=== PATIENT | female | born 1960 | race Caucasian/White ===

== ENCOUNTER → 2020-11-12 | Outpatient (CLI) | payer BC, SELFPAY | END | disposition home or self-care (01) | PROVIDERS: PCP Nurse Practitioner; Visit Provider Nurse Practitioner | DX: L08.9 Local infection of the skin and subcutaneous tissue, unspecified (principal); L72.3 Sebaceous cyst | CPT/HCPCS: 87070; 87075; 87205 ==

== ENCOUNTER → 2023-03-18 | Outpatient (CLI) | payer BC, SELFPAY ==
--- OUTSIDE RECORDS SUMMARY | 2023-03-18 20:50 | XMS RPT_ITS | CCD ---
Author Name Unknown Address [address] [place] [address] [address] [place] [address] Organization [facility] Care Team Providers Care Snow Removing Supervisor Name Role Phone Juanpablo Kohli MD Primary Care Provider Juanpablo Chester Primary Care Unavailable PROVIDER, UNKNOWN Referring Unavailable Beth Grant Attending Unavailable Unavailable Primary Care Provider UnavailJuanpablo Newton MD Primary Care Provider Allergies Allergy Classification Reported Allergen(s) Allergy Type Date of Onset Reaction(s) Facility (5 sources) Acetaminophen / HYDROcodone; Translations: [HYDROCODONE-ACET AMINOPHEN] Drug Allergy 1 Unknown [facility] (4 sources) Codeine Drug Allergy 5 Unknown [facility] (4 sources) Morphine Drug Allergy 5 Unknown [facility] (1 source) Acetaminophen Drug Allergy 8 Unknown [facility] (1 source) HYDROcodone Drug Allergy 8 Unknown [facility] NEGATED: Highlighted row has been ruled out! (2 sources) Other Propensity to adverse reactions 6 Other (See Comments) [facility] Medications Current Medications Medication Drug Class(es) Dates Sig (Normalized) Sig (Original) amoxicillin 875 mg / clavulanate 125 mg oral tablet (2 sources) Penicillin-class Antibacterial Start: 02-08-2022 End: 02-18-2022 take 1 tablet by mouth twice daily amoxicillin-clav ulanic acid (AUGMENTIN) 875-125 mg per tablet Take 1 tablet by mouth twice daily for 10 days. 20 tablet 0 02/08/2022 02/18/2022 Active Completed/Discontinued Medications Medication Drug Class(es) Dates Sig (Normalized) Sig (Original) esomeprazole 40 mg delayed release oral capsule (4 sources) Proton Pump Inhibitor Start: 10-10-2016 take 1 capsule by mouth once daily esomeprazole (NEXIUM) 40 mg capsule Take 1 capsule by mouth once daily. 30 capsule 3 10/10/2016 Active Problems Problem Classification Problem Date Documented Date Episodic/Chronic Diabetes mellitus with complications (4 sources) Type 2 diabetes mellitus; Translations: [Type 2 diabetes mellitus with hyperglycemia] Onset: 11-24-2021 Chronic Diabetes mellitus without complication (3 sources) Diabetes mellitus; Translations: [Type 2 diabetes mellitus without complications] Onset: 01-28-2015 01-28-2015 Chronic Disorders of lipid metabolism (2 sources) Hyperlipidemia; Translations: [Hyperlipidemia, unspecified] Onset: 10-28-2021 10-28-2021 Chronic Esophageal disorders (3 sources) Gastroesophageal reflux disease; Translations: [Gastro-esophageal reflux disease without esophagitis] Onset: 01-28-2015 01-28-2015 Chronic Essential hypertension (3 sources) Hypertensive disorder; Translations: [Essential (primary) hypertension] Onset: 01-28-2015 01-28-2015 Chronic Other aftercare (2 sources) computer terminal operator (current) use of insulin; 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] Onset: 11-24-2021 Episodic Other nutritional; endocrine; and metabolic disorders (2 sources) Body mass index 30+ - obesity; Translations: [Obesity, unspecified] Onset: 10-28-2021 10-28-2021 Chronic Other upper respiratory infections (1 source) Acute pansinusitis; Translations: [Acute pansinusitis, unspecified] Episodic Results Test Name Value Interpretation Reference Range Facil ity Vital Signs Date Time Vital Sign Value Performing Clinician David zafar 02-08-2022 15:43-0500 Body height 157.5 cm Beth Donis PA-C Work Phone: [facility] 02-08-2022 15:43-0500 Body temperature 97.39 [degF] Beth Donis PA-C Work Phone: [facility] 02-08-2022 15:43-0500 Body weight 103.42 kg Beth Donis PA-C Work Phone: [facility] 02-08-2022 15:43-0500 Diastolic blood pressure 102 mm[Hg] Beth Donis PA-C Work Phone: [facility] 02-08-2022 15:43-0500 Heart rate 104 /min Bethjuly Guyy PA-C Work Phone: [facility] 02-08-2022 15:43-0500 Respiratory rate 18 /min Beth Athy PA-C Work Phone: [facility] 02-08-2022 15:43-0500 SaO2% (BldA) [Mass fraction] 97 % Beth Athy PA-C Work Phone: [facility] 02-08-2022 15:43-0500 Systolic blood pressure 162 mm[Hg] Beth Guyy PA-C Work Phone: [facility] Encounters Encounter Date Encounter Type Care Provider Facility Start: 05-19-2022 Refill Beth Macias MD [facility] Phone[facility] Procedures Date Procedure Procedure Detail Performing Clinician Start: 11-24-2021 Urine albumin quantitative Beth Macias MD Work Phone: Start: 11-24-2021 Comprehensive metabo lic panel Beth Macias MD Work Phone: Start: 11-24-2021 Lipid panel Beth Macias MD Work Phone: Start: 11-24-2021 Lipid 1996 panel - S gayle or Plasma Beth Macias MD Work Phone: Start: 05-26-2020 Follow-up visit Start: 10-23-2015 Colonoscopy Beth Macias MD Work Phone: Plan of Treatment Date Care Activity Detail Author Start: 11-24-2026 LIPID SCREEN LIPID SCREEN [facility] Start: 10-22-2025 Screening for malignant neoplasm of colon [facility] Start: 02-03-2023 Diabetic retinal exam Diabetic retinal exam [facility] Start: 11-24-2022 Lipid panel [facility] Start: 11-24-2022 Urine screening for protein [facility] Start: 10-28-2022 Diabetic foot examination Diabetic foot exam [facility] Start: 10-28-2022 Hemoglobin A1c measurement A1C test (Diabetic or Prediabetic) [facility] Start: 10-15-2022 Influenza vaccination Influenza Vaccine (Season Ended) [facility] Start: 03-11-2022 End: 03-11-2022 Patient encounter procedure 03/11/2022 Office Visit Endocrinology Beth Grant MD [address] [facility] [address] [place] [address] Endocrinology [facility] Start: 01-27-2022 Hemoglobin A1c measurement Diabetes: Hemoglobin A1C [facility] Start: 09-14-2021 Influenza vaccination Flu vaccine (#1) [facility] Start: 04-28-2021 Hemoglobin A1c measurement A1C test (Diabetic or Prediabetic) [facility] Work Phone: Start: 03-30-2021 End: 03-30-2021 Patient encounter procedure 03/30/2021 Office Visit Endocrinology Logan Gray DO [address] [place] [address] [phone] Endocrinology Start: 02-14-2021 DEPRESSION ASSESSMENT DEPRESSION ASSESSMENT [facility] Start: 10-15-2020 Influenza vaccination Flu vaccine (#1) [facility] Work Phone: Start: 10-07-2020 Diabetic foot examination Diabetic foot exam [facility] Work Phone: Start: 07-28-2020 COVID-19 Vaccine (3 - Booster for Pfizer series) COVID-19 Vaccine (3 - Booster for Pfizer series) [facility] Start: 04-24-2020 COVID-19 Vaccine (3 - Booster for Pfizer series) COVID-19 Vaccine (3 - Booster for Pfizer series) [facility] Start: 10-08-2018 Creatinine measurement Creatinine monitoring [facility] Work Phone: Start: 10-08-2018 Diabetic microalbuminuria test Diabetic microalbuminuria test [facility] Work Phone: Start: 10-08-2018 Lipid panel Lipid screen [facility] Work Phone: Start: 10-08-2018 Potassium monitoring Potassium monitoring [facility] Work Phone: Start: 07-27-2018 Screening for malignant neoplasm of breast Breast cancer screen [facility] Start: 04-17-2013 DIABETES SCREEN DIABETES SCREEN [facility] Start: 12-04-2009 Shingles Vaccine (1 of 2) Shingles Vaccine (1 of 2) [facility] Start: 12-04-2009 SHINGRIX VACCINE (1 of 2) SHINGRIX VACCINE (1 of 2) [facility] Start: 12-04-2009 Zoster Vaccines (1 of 2) Zoster Vaccines (1 of 2) [facility] Start: 12-04-2004 COLOGUARD (FIT-DNA) COLOGUARD (FIT-DNA) [facility] Start: 12-04-2004 Colonoscopy COLONOSCOPY [facility] Start: 12-04-2004 COLORECTAL CANCER SCREENING COLORECTAL CANCER SCREENING [facility] Start: 12-04-[address] COLONOGRAPHY [facility] Start: 12-04-2004 FECAL OCCULT BLOOD FECAL OCCULT BLOOD [facility] Start: 12-04-2004 Screening for malignant neoplasm of colon [facility] Start: 12-04-2004 SIGMOIDOSCOPY SIGMOIDOSCOPY [facility] Start: 1999 Mammography MAMMOGRAM [facility] Start: 1999 Screening for malignant neoplasm of breast Mammogram [facility] Start: 12-04-1989 HPV TESTING HPV TESTING [facility] Start: 12-04-1989 Screening for malignant neoplasm of cervix [facility] Start: 12-04-1980 PAP TESTING PAP TESTING [facility] Start: 12-04-1980 Screening for malignant neoplasm of cervix Pap smear [facility] Start: 12-04-1978 DTaP/Tdap/Td vaccine (1 - Tdap) DTaP/Tdap/Td vaccine (1 - Tdap) [facility] Start: 12-04-1978 DTaP/Tdap/Td Vaccines (1 - Tdap) DTaP/Tdap/Td Vaccines (1 - Tdap) [facility] Start: 12-04-1978 Urine microalbumin profile DTAP,TDAP,TD (1 - Tdap) [facility] Start: 12-04-1977 Hepatitis C screening [facility] Start: 12-04-1977 HEPATITIS C SCREENING HEPATITIS C SCREENING [facility] Start: 12-04-1977 HIV SCREENING HIV SCREENING [facility] Start: 12-04-1974 HIV screening HIV screen [facility] Start: 1971 Depression Screen Depression Screen [facility] Start: 12-04-1969 Diabetic foot examination Diabetes: Foot Exam [facility] Start: 12-04-1969 Diabetic retinal exam Diabetic retinal exam [facility] Work Phone: Start: 12-04-1969 Glaucoma screening Diabetes: Retinopathy Screening [facility] Start: 12-04-1969 Preventive dental service Diabetes: Dental Exam [facility] Start: 12-04-1965 Pneumococcal 0-64 years Vaccine (1 - PCV) Pneumococcal 0-64 years Vaccine (1 - PCV) [facility] Start: 12-04-1965 Pneumococcal 0-64 years Vaccine (1 of 2 - PPSV23) Pneumococcal 0-64 years Vaccine (1 of 2 - PPSV23) [facility] Work Phone: Start: 12-04-1965 Pneumococcal Vaccine: Pediatrics (0 to 5 Years) and At-Risk Patients (6 to 64 Years) (1 - PCV) Pneumococcal Vaccine: Pediatrics (0 to 5 Years) and At-Risk Patients (6 to 64 Years) (1 - PCV) [facility] Start: 12-04-1960 MMR Vaccines (1 of 1 - Standard series) MMR Vaccines (1 of 1 - Standard series) [facility] Start: 1959 Hepatitis B Vaccines (1 of 3 - 3-dose series) Hepatitis B Vaccines (1 of 3 - 3-dose series) [facility] Start: 1959 Hepatitis C screening Hepatitis C screen [facility] Work Phone: Start: 1959 HIV screening HIV Screening [facility] Start: 1959 Screening for malignant neoplasm of colon [facility] End: 11-25-2020 CT LOWER EXTREMITY LEFT WO CONTRAST CT LOWER EXTREMITY LEFT WO CONTRAST Imaging Routine Once for 1 Occurrences starting 11/25/2020 until 11/25/2020 [facility] Work Phone: Immunizations Immunization Date Immunization Notes Care Provider Fa cility 02-28-2020 Pfizer SARS-CoV-2 Vaccination Beth Macias MD Work Phone: [facility] 02-06-2020 Pfizer SARS-CoV-2 Vaccination Beth Macias MD Work Phone: [facility] 01-13-2016 influenza virus vacc ine, unspecified formulation Sander Sherman MD Work Phone: [facility] Payers Date Payer Category Payer Unknown [id number] 2018 Unknown 1960 Unknown [id number] Social History Date Type Detail Facility Start: 11-17-2020 End: 10-28-2021 Tobacco smoking status INIS Former smoker [facility] Start: 11-17-2020 End: 10-28-2021 Tobacco use and exposure Never used [facility] Start: 11-17-2020 End: 10-28-2021 Alcohol intake Current non-drinker of alcohol (finding) [facility] Work Phone: Start: 11-17-2020 End: 10-28-2021 Alcohol intake [facility] Work Phone: Start: 1960 Sex Assigned At Not on file [email or web address] Work Phone: Start: 10-18-2021 End: 10-28-2021 Exposure to SARS-CoV-2 (event) Not sure [facility] History of tobacco use Current smoker [facility] Work Phone: Tobacco smoking status [facility] Tobacco smoking consumption unknown [facility] Medical Equipment Procedure Code Equipment Code Equipment Origin al Text Equipment Identifier Dates [id number] Start: 08-25-2016 1 each by Does n ot apply route 4 times daily [id number] Start: 11-17-2020 1 Device by Does not apply route 4 times daily [id number] Start: 11-17-2020 1 each by In Vit ro route 4 times daily As directed. [id number] Start: 03-30-2021 1 each by Does n ot apply route 4 times daily [id number] Start: 03-30-2021 1 Device by Does not apply route 4 times daily [id number] Start: 03-30-2021 USE 4 TIMES A DAY [id number] Start: 04-19-2021 1 DEVICE BY DOES NOT APPLY ROUTE 4 TIMES DAILY [id number] Start: 03-30-2021 USE TO CHECK BLO OD SUGAR 4 TIMES DAILY DIRECTED [id number] Start: 01-05-2021 Goals Date Patient Goal Desired Activity /State Telephone encounter Note 05-20-2022 Telephone Encounter - Priscilla Schmitz MA - 05/20/2022 1:15 PM EDT Note Date & Type Note Facility 05-20-2022 Telephone encounter Note Form atting of this note might be different from the original. The patient stated that she had a follow up scheduled but had to cancel due to taking care of her father. She took off a lot of days of work to take care of him and is out of days to take off and she works the same hours that we do. She is intending on making an appt but is not sure yet when she can make an appt, I also let her know that vitrual visits are also an option in case that might help her out. She wanted me to let you know as an fyi and will be getting in touch with us. [facility] Note 05-20-2022 Telephone Encounter - Priscilla Schmitz MA - 05/20/2022 1:15 PM EDTTelephone Encounter - Beth Macias MD - 05/20/2022 7:56 AM EDT Note Date & Type Note Facility 05-20-2022 Miscellaneous Notes Formattin g of this note might be different from the original. The patient stated that she had a follow up scheduled but had to cancel due to taking care of her father. She took off a lot of days of work to take care of him and is out of days to take off and she works the same hours that we do. She is intending on making an appt but is not sure yet when she can make an appt, I also let her know that vitrual visits are also an option in case that might help her out. She wanted me to let you know as an fyi and will be getting in touch with us. Can you please schedule a follow up for this patient for diabetes ? Thanks documented in this encounter [facility] Telephone encounter Note 05-20-2022 Telephone Encounter - Beth Macias MD - 05/20/2022 7:56 AM EDT Note Date & Type Note Facility 05-20-2022 Telephone encount er Note Can you please schedule a follow up for this patient for diabetes ? Thanks [facility] Progress note 02-08-2022 Note Date & Type Note Facility 02-08-2022 Note HNO ID: [id number] Author: Beth Donis PA-C Service: ? Author Type: Physician Official Greeter Type: Progress Notes Filed: 02/08/2022 4:06 PM Note Text: This note was created using [employer]. Subjective María Elena Silva is a 61 year old female. HPI Patient presents with sinus pressure and congestion for 8 days. She had has sinus infections before and feels similar. Last time patient had to take levaquin for symptoms to clear. No fever. No nvd. She thinks it started as allergies. Review of Systems Constitutional: Negative. HENT: Positive for congestion, postnasal drip, sinus pressure, sinus pain and sneezing. Respiratory: Negative. Cardiovascular: Negative. Gastrointestinal: Negative. Genitourinary: Negative. Musculoskeletal: Negative. All other systems reviewed and are negative. No past medical history on file. Current Outpatient Medications Medication Sig Dispense Refill TRULICITY 3 mg/0.5 mL pen injector INJECT 3 MG INTO THE SKIN ONCE A WEEK insulin lispro (HUMALOG) 200 unit/mL (3 mL) injection Inject 15 Units subcutaneously. insulin detemir U-100 (LEVEMIR) 100 unit/mL (3 mL) injection pen Insulin Detemir U-100 Active 10 UNIT SC AT BEDTIME January 19, 2018 1:00am losartan (COZAAR) 25 mg tablet amoxicillin-clavulanic acid (AUGMENTIN) 875-125 mg per tablet Take 1 tablet by mouth twice daily for 10 days. 20 tablet 0 predniSONE (DELTASONE) 20 mg tablet Take 2 tablets by mouth once daily. [address] (PROTONIX) 40 mg tablet Take 1 tablet by mouth once daily. 90 tablet 3 glipiZIDE (GLUCOTROL) 5 mg tablet VICTOZA 3-BRITTNI 0.6 mg/0.1 mL (18 mg/3 mL) pnij NOVOFINE PLUS 32 gauge x 1/6 ndle esomeprazole (NEXIUM) 40 mg capsule Take 1 capsule by mouth once daily. 30 capsule 3 Omeprazole 40 mg capsule Take 1 capsule by mouth once daily. 90 capsule 3 No current facility-administered medications for this visit. No past surgical history on file. No family history on file. Objective BP 162/102 Pulse 104 Temp 36.3 ?C (97.4 ?F) (Tympanic) Resp 18 Ht 157.5 cm (5' 2 ) Wt 103.4 kg (228 lb) SpO2 97% BMI 41.70 kg/m? Physical Exam Vitals reviewed. Constitutional: Appearance: Normal appearance. HENT: Head: Normocephalic and atraumatic. Right Ear: Tympanic membrane, ear canal and external ear normal. Left Ear: Tympanic membrane, ear canal and external ear normal. Nose: Congestion present. Right Sinus: Maxillary sinus tenderness and frontal sinus tenderness present. Left Sinus: Maxillary sinus tenderness and frontal sinus tenderness present. Mouth/Throat: Mouth: Mucous membranes are moist. Pharynx: Oropharynx is clear. Cardiovascular: Rate and Rhythm: Normal rate and regular rhythm. Heart sounds: Normal heart sounds. Pulmonary: Effort: Pulmonary effort is normal. Breath sounds: Normal breath sounds. Musculoskeletal: Cervical back: Neck supple. Lymphadenopathy: Cervical: No cervical adenopathy. Skin: General: Skin is warm and dry. Neurological: Mental Status: She is alert. Assessment and Plan ASSESSMENT/PLAN: 1. Acute non-recurrent pansinusitis - ICD9: 461.8, ICD10: J01.40 - Will begin treatment with Augmentin 875 mg PO BID for 10 days, prednisone for 5. Check BS while on prednisone Discussed side effects of levaquin as patient originally wanted this. She was agreeable with augmentin this time. - Supportive care with plenty of fluids, rest, and analgesia prn. - Follow up in 3-5 days if symptoms persist or worsen. Beth Donis PA-C [facility] History of Present illness Narrative 02-08-2022 Beth Donis PA-C - 02/08/2022 4:03 PM EST Note Date & Type Note Facility 02-08-2022 History of Presen t illness Narrative This note was created using [employer]. Subjective María Elena Silva is a 61 year old female. HPI Patient presents with sinus pressure and congestion for 8 days. She had has sinus infections before and feels similar. Last time patient had to take levaquin for symptoms to clear. No fever. No nvd. She thinks it started as allergies. Review of Systems Constitutional: Negative. HENT: Positive for congestion, postnasal drip, sinus pressure, sinus pain and sneezing. Respiratory: Negative. Cardiovascular: Negative. Gastrointestinal: Negative. Genitourinary: Negative. Musculoskeletal: Negative. All other systems reviewed and are negative. No past medical history on file. Current Outpatient Medications Medication Sig Dispense Refill TRULICITY 3 mg/0.5 mL pen injector INJECT 3 MG INTO THE SKIN ONCE A WEEK insulin lispro (HUMALOG) 200 unit/mL (3 mL) injection Inject 15 Units subcutaneously. insulin detemir U-100 (LEVEMIR) 100 unit/mL (3 mL) injection pen Insulin Detemir U-100 Active 10 UNIT SC AT BEDTIME January 19, 2018 1:00am losartan (COZAAR) 25 mg tablet amoxicillin-clavulanic acid (AUGMENTIN) 875-125 mg per tablet Take 1 tablet by mouth twice daily for 10 days. 20 tablet 0 predniSONE (DELTASONE) 20 mg tablet Take 2 tablets by mouth once daily. [address] (PROTONIX) 40 mg tablet Take 1 tablet by mouth once daily. 90 tablet 3 glipiZIDE (GLUCOTROL) 5 mg tablet VICTOZA 3-BRITTNI 0.6 mg/0.1 mL (18 mg/3 mL) pnij NOVOFINE PLUS 32 gauge x 1/6 ndle esomeprazole (NEXIUM) 40 mg capsule Take 1 capsule by mouth once daily. 30 capsule 3 Omeprazole 40 mg capsule Take 1 capsule by mouth once daily. 90 capsule 3 No current facility-administered medications for this visit. No past surgical history on file. No family history on file. Objective BP 162/102 Pulse 104 Temp 36.3 C (97.4 F) (Tympanic) Resp 18 Ht 157.5 cm (5' 2 ) Wt 103.4 kg (228 lb) SpO2 97% BMI 41.70 kg/m Physical Exam Vitals reviewed. Constitutional: Appearance: Normal appearance. HENT: Head: Normocephalic and atraumatic. Right Ear: Tympanic membrane, ear canal and external ear normal. Left Ear: Tympanic membrane, ear canal and external ear normal. Nose: Congestion present. Right Sinus: Maxillary sinus tenderness and frontal sinus tenderness present. Left Sinus: Maxillary sinus tenderness and frontal sinus tenderness present. Mouth/Throat: Mouth: Mucous membranes are moist. Pharynx: Oropharynx is clear. Cardiovascular: Rate and Rhythm: Normal rate and regular rhythm. Heart sounds: Normal heart sounds. Pulmonary: Effort: Pulmonary effort is normal. Breath sounds: Normal breath sounds. Musculoskeletal: Cervical back: Neck supple. Lymphadenopathy: Cervical: No cervical adenopathy. Skin: General: Skin is warm and dry. Neurological: Mental Status: She is alert. Assessment and Plan ASSESSMENT/PLAN: 1. Acute non-recurrent pansinusitis - ICD9: 461.8, ICD10: J01.40 - Will begin treatment with Augmentin 875 mg PO BID for 10 days, prednisone for 5. Check BS while on prednisone Discussed side effects of levaquin as patient originally wanted this. She was agreeable with augmentin this time. - Supportive care with plenty of fluids, rest, and analgesia prn. - Follow up in 3-5 days if symptoms persist or worsen. Beth Donis PA-C documented in this encounter [facility] Evaluation note Note Date & Type Note Facility documented in this encounter [facility] Work Phone: Evaluation note Note Date & Type Note Facility documented in this encounter [facility] Evaluation note Note Date & Type Note Facility documented in this encounter [facility] Summary Purpose Family History No Family History Records FoundNo Family History Records FoundNo Family History Records FoundNo Family History Records Found Advance Directives No Advanced Directives Records FoundDocuments on File Type Date Recorded Patient Cart Driver Expl anation ACP-Advance Directive ACP-Power of Picture Copyist Additional Source Comments INFORMATION SOURCE (unrecogn ized section and content) DATE CREATED AUTHOR AUTHOR'S ORGANIZ ATION 12/07/2021 [facility] tem DATE CREATED AUTHOR AUTHOR'S ORGANIZ ATION 02/08/2022 [facility] DATE CREATED AUTHOR AUTHOR'S ORGANIZ ATION 05/22/2022 [facility] Care Teams (unrecognized sec tion and content) Snow Removing Supervisor Relationship Specialty Start Date End Date Juanpablo Kohli MD [address] [place] [id number] PCP - General 02/26/19 Source Comments (unrecognize d section and content) In the event this informatio n is protected by the Federal Confidentiality of Alcohol and Drug Abuse Patient Records regulations: The Federal rules restrict any use of the information to criminally investigate or prosecute any alcohol or drug abuse patient.[facility] Reason for Visit (unrecogniz ed section and content) Reason Comments Med Refill FOR RECORDS PERTAINING TO PATIENTS WHO ARE OR HAVE BEEN ENROLLED IN A CHEMICAL DEPENDENCY/SUBSTANCEABUSE PROGRAM, SOME INFORMATION MAY BE OMITTED. This clinical summary was aggregated from multiple sources. Caution should be exercised in using it in the provision of clinical care. This summary normalizes information from multiple sources, and as a consequence, information in this document may materially change the coding, format and clinical context of patient data. In addition, data may be omitted in some cases. CLINICAL DECISIONS SHOULD BE BASED ON THE PRIMARY CLINICAL RECORDS. [facility]. provides no warranty or guarantee of the accuracy or completeness of information in this document.
[2023-03-18 20:55] LABS: Basophil# 0.05 X10^3/uL; Basophil% 0.6 % (0-1); Eosinophil# 0.13 X10^3/uL; Eosinophils% 1.5 % (0-5); Hematocrit 40.4 % (37-47); Hemoglobin 13.2 g/dL (12.0-15.0); Lymphocyte % 32.8 % (19-41); Mean Corp Hgb Conc 32.7 g/dL (32-36); Mean Corpuscular Hgb 27.1 pg (27.0-32.0); Mean Platelet Vol. 11.5 fl (6.2-12.0); Monocyte% 7.9 % (0-10); NRBC Flagged by Analyzer 0 % (0-5); Neutrophil # 5.03 X10^3/uL (2.7-7.7); Platelet Count 239 K/mm3 (150-450); RBC Distribution Width CV 12.6 % (11.6-14.6); RBC Distribution Width SD 38.1 fl (35.1-43.9); Red Blood Count 4.87 M/mm3 (4.2-5.4); White Blood Count 8.8 K/mm3 (4.4-11.0)
[2023-03-18 20:56] LABS: POSITIVE COUNT NO; POSITIVE DIFFERENTIAL NO; POSITIVE MORPHOLOGY NO
[2023-03-18 21:30] LABS: Hemoglobin A1c 8.8 % (3.8-5.6)
[2023-03-18 21:39] LABS: AST(SGOT) 20 U/L (15-37); Alanine Aminotransfer ALT/SGPT 42 U/L (13-56); Albumin, Serum 3.5 g/dL (3.2-5.0); Alkaline Phosphatase 132 U/L (45-117); Anion Gap 1 (5-15); BUN 14 mg/dL (7-18); BUN/Creat Ratio 16.5 RATIO (10-20); CRP, High Sensitivity Cardiac 7.45 mg/L; Calcium,Total 9.1 mg/dL (8.5-10.1); Chloride 104 mmol/L (98-107); Cholesterol 188 mg/dL (200); Creatinine, Serum 0.85 mg/dL (0.55-1.02); EST Glomerular Filtration Rate 72 mL/min (>60); Est Glom Filt Rate - Afr Amer 87 mL/min (>60); Globulin 3.5 g/dL (2.2-4.2); Glucose 299 mg/dL (74-106); High Density Lipoprotein 43 mg/dL; Potassium 4.1 mmol/L (3.5-5.1); Sodium Level 135 mmol/L (136-145); Thyroid Stim Hormone (TSH) 1.18 uIU/mL (0.358-3.74); Triglycerides 259 mg/dL; Troponin-I HS 26 pg/mL (3.0-54.0); Very Low Density Lipoprotein 52 mg/dL (5-40)
== END | disposition home or self-care (01) ==
PROVIDERS: PCP Nurse Practitioner; Referring Provider Nurse Practitioner; Visit Provider Nurse Practitioner
DX: I10 Essential (primary) hypertension (principal); E11.65 Type 2 diabetes mellitus with hyperglycemia
CPT/HCPCS: 80053; 80061; 83036; 84443; 84484; 85025; 86141

== ENCOUNTER → 2024-04-12 | Outpatient (CLI) | payer BC, SELFPAY ==
[2024-04-12 22:07] LABS: Absolute Lymphocyte Count 3.67 X10^3/uL (0.83-4.51); Absolute Neutrophil Count 5.5 X10^3/uL (2.0-7.7); Basophil# 0.06 X10^3/uL; Basophil% 0.6 % (0-1); Eosinophil# 0.25 X10^3/uL; Eosinophils% 2.4 % (0-5); Hematocrit 38.5 % (37-47); Hemoglobin 13.1 g/dL (12.0-15.0); Lymphocyte # 3.67 X10^3/ul (0.83-4.51); Lymphocyte % 35.4 % (19-41); Mean Corpuscular Hgb 28.3 pg (27.0-32.0); Mean Corpuscular Volume 83.2 fL (81-99); Mean Platelet Vol. 10.9 fl (6.2-12.0); Monocyte# 0.84 X10^3/uL; Monocyte% 8.1 % (0-10); NRBC Flagged by Analyzer 0 % (0-5); Neutrophil # 5.52 X10^3/uL (2.7-7.7); Neutrophil % 53.2 % (47-70); Platelet Count 303 K/mm3 (150-450); RBC Distribution Width CV 12.1 % (11.6-14.6); RBC Distribution Width SD 36.8 fl (35.1-43.9); Red Blood Count 4.63 M/mm3 (4.2-5.4); White Blood Count 10.4 K/mm3 (4.4-11.0)
[2024-04-12 22:50] LABS: ALB/GLOB Ratio 1.3 RATIO (0.9-2.4); AST(SGOT) 18 U/L (<=31); Alanine Aminotransfer ALT/SGPT 21 U/L (<=34); Albumin, Serum 4.1 g/dL (3.4-4.8); Alkaline Phosphatase 94 U/L (35-104); Anion Gap 11 (5-15); BUN 12 mg/dL (4-19); BUN/Creat Ratio 18.8 RATIO (10-20); Calcium 9.6 mg/dL (7.6-11.0); Carbon Dioxide 26.4 mmol/L (22.0-29.0); Chloride 101 mmol/L (96-108); Cholesterol 186 mg/dL (<=200); Creatinine, Serum 0.63 mg/dL (0.70-1.20); EST Glomerular Filtration Rate 99 (>60); Globulin 3.1 g/dL (2.2-4.2); Glucose 141 mg/dL (70-99); High Density Lipoprotein 49 mg/dL; Low Density Lipoprotein Calc. 118 mg/dL; Protein, Total 7.2 g/dL (5.9-8.4); Sodium Level 139 mmol/L (133-145); Total Bilirubin 0.35 mg/dL (0.00-1.30); Triglycerides 96 mg/dL; Very Low Density Lipoprotein 19 mg/dL (5-40); cholesterol:hdl ratio screen 3.77
== END | disposition home or self-care (01) ==
PROVIDERS: PCP Nurse Practitioner; Referring Provider Nurse Practitioner; Visit Provider Nurse Practitioner
DX: E11.65 Type 2 diabetes mellitus with hyperglycemia (principal); I15.2 Hypertension secondary to endocrine disorders; E78.1 Pure hyperglyceridemia; N30.90 Cystitis, unspecified without hematuria
CPT/HCPCS: 80053; 80061; 85025; 87086